=== PATIENT | female | born 1960 | race Caucasian/White ===

== ENCOUNTER 2021-12-31 10:24 | Inpatient (IN) | payer MEDICARE ==
[2021-12-31 11:30] VITALS: BMI 59.5
[2021-12-31] MEDS ORDERED: Albuterol 200 PUFF (6.7GM INHALER) INH PRN (12:43)
[2021-12-31] MEDS ORDERED: HYDROcodone/Acetaminophen 10/325 mg Tablet PO PRN (12:43)
[2021-12-31] MEDS ORDERED: Dextrose 50% Abboject 50 ML SYRINGE SLOW IVP PRN (12:55)
[2021-12-31] MEDS ORDERED: Insulin Regular 300 UNITS/3 ML VIAL SC PRN ×2 (12:55)
[2021-12-31] MEDS ORDERED: Dicyclomine 10 MG CAP PO SCH (13:00)
[2021-12-31] MEDS ORDERED: HYDROXYZINE 50 MG PO SCH (13:00)
[2021-12-31] MEDS ORDERED: Acetaminophen 325 MG TAB PO PRN (14:32)
[2021-12-31] MEDS: HYDROcodone/Acetaminophen 10/325 mg Tablet PO PRN (14:45)
[2021-12-31] MEDS: Pregabalin 50 MG CAP PO SCH ×2 (16:22→20:15)
[2021-12-31] MEDS: Baclofen 10 MG TAB PO SCH ×2 (16:22→20:18)
[2021-12-31] MEDS: Acetaminophen 325 MG TAB PO PRN (16:30)
[2021-12-31] MEDS: Clindamycin 150 MG CAP PO SCH ×2 (17:38→23:23)
[2021-12-31] MEDS: hydrOXYzine 25 MG TAB PO SCH ×2 (17:39→23:23)
[2021-12-31] MEDS: Dicyclomine 10 MG CAP PO SCH ×2 (17:40→20:18)
[2021-12-31 18:44] LABS: SARS-CoV-2 PCR by NAA Not Detected (NotDetected)
[2021-12-31] MEDS: Atorvastatin Calcium 40 MG TAB PO SCH (20:16)
[2021-12-31] MEDS: DULoxetine 30 MG CAP PO SCH (20:17)
[2021-12-31] MEDS: Amitriptyline HCl 25 MG TAB PO SCH (20:17)
[2021-12-31] MEDS: Famotidine 20 MG TAB PO SCH (20:18)
[2021-12-31] MEDS: Carvedilol 12.5 MG TAB PO SCH (20:18)
[2021-12-31] MEDS: Gabapentin 300 MG CAP PO SCH (20:18)
[2021-12-31] MEDS: Hydrocortisone 1% Cream 30 GM TUBE TOP SCH (20:19)
[2021-12-31] MEDS: Mometasone/Formoterol 200/5 60 PUFF INH SCH (20:20)
[2021-12-31] MEDS ORDERED: Non-Formulary Item 1 EACH (Duloxetine [Cymbalta] 60 MG Cap) PO SCH (21:00)
[2021-12-31] MEDS ORDERED: AMITRIPTYLINE HCL 100 MG PO SCH (21:00)
[2021-12-31] MEDS ORDERED: Atorvastatin Calcium 40 MG TAB PO SCH (21:00)
[2021-12-31] MEDS ORDERED: CARVEDILOL 25 MG PO SCH (21:00)
[2021-12-31] MEDS ORDERED: Non-Formulary Item 1 EACH (Fluticasone/Salmeterol [Advair Diskus 250/50] 1 EACH Blst.W.De IH SCH (21:00)
[2022-01-01] MEDS: HYDROcodone/Acetaminophen 10/325 mg Tablet PO PRN ×3 (05:08→22:08)
[2022-01-01] MEDS: Clindamycin 150 MG CAP PO SCH ×3 (05:08→18:33)
[2022-01-01] MEDS: hydrOXYzine 25 MG TAB PO SCH ×3 (05:10→18:33)
[2022-01-01 05:18] LABS: #Basophils 0.1 thou/uL (0.0-0.2); #Eosinphils 0.3 thou/uL (0.0-0.7); #Lymphocytes 3.5 thou/uL (1.20-3.40); #Monocytes 0.8 thou/uL (0.11-0.59); %Basophils 0.9 % (0.0-1.0); %Eosinophils 3.6 % (0.0-10.0); %Lymphocytes 36.2 % (21.0-51.0); %Monocytes 7.8 % (0.0-10.0); %Neutrophils 51.5 % (42.0-75.0); Hemoglobin 13.3 g/dL (12.0-16.0); Mean Corpuscular HGB CONC 31.6 g/dL (32.0-36.0); Mean Corpuscular Hemoglobin 28.1 pg (27.0-31.0); Mean Corpuscular Volume 88.9 fL (78.0-98.0); Mean Platelet Volume 7.1 fL (7.4-10.4); Platelet Count 195 thou/uL (130-400); RBC Distribution Width 13.6 % (11.5-14.5); Red Blood Cell (RBC) Count 4.73 mill/uL (4.20-5.40); White Blood Cell (WBC) Count 9.7 thou/uL (4.8-10.8)
[2022-01-01 05:28] LABS: Anion Gap 12 mmol/L (10-20); BUN (Urea Nitrogen) 35 mg/dL (9.8-20.1); Calc. Creatinine Clearance 133 mL/min (70-130); Calcium 9.2 mg/dL (7.8-10.44); Carbon Dioxide 36 mmol/L (22-29); Chloride 98 mmol/L (98-107); Glucose 108 mg/dL (70-105); Potassium 4.6 mmol/L (3.5-5.1); Sodium 141 mmol/L (136-145)
[2022-01-01] MEDS ORDERED: Fluticasone Propionate Nasal Spray 16 gm Bottle NASAL SCH (09:00)
[2022-01-01] MEDS ORDERED: metFORMIN 500 MG TAB PO SCH (09:00)
[2022-01-01] MEDS ORDERED: Potassium Chloride 20 MEQ TAB PO SCH (09:00)
[2022-01-01] MEDS ORDERED: Non-Formulary Item 1 EACH (Lisinopril/Hydrochlorothiazide [Lisinopril-Hctz 20-12.5 Mg Tab PO SCH (09:00)
[2022-01-01] MEDS: Hydrochlorothiazide 25 MG TAB PO SCH (09:04)
[2022-01-01] MEDS: Carvedilol 12.5 MG TAB PO SCH (09:04)
[2022-01-01] MEDS: Dicyclomine 10 MG CAP PO SCH (09:04)
[2022-01-01] MEDS: metFORMIN 500 MG TAB PO SCH (09:04)
[2022-01-01] MEDS: Mometasone/Formoterol 200/5 60 PUFF INH SCH ×2 (09:05→21:54)
[2022-01-01] MEDS: Polyethylene Glycol 3350 17 GM Packet PO SCH (09:06)
[2022-01-01] MEDS: Lisinopril 20 MG TAB PO SCH (09:14)
[2022-01-01] MEDS: Famotidine 20 MG TAB PO SCH ×2 (09:14→22:01)
[2022-01-01] MEDS: Clopidogrel Bisulfate 75 MG TAB PO SCH (09:14)
[2022-01-01] MEDS: Baclofen 10 MG TAB PO SCH ×3 (09:14→21:58)
[2022-01-01] MEDS: Enoxaparin Sodium 40 MG/0.4 ML SYRINGE SC SCH (09:14)
[2022-01-01] MEDS: Furosemide 40 MG TAB PO SCH (09:14)
[2022-01-01] MEDS: Potassium Chloride 20 MEQ TAB PO SCH (09:14)
[2022-01-01] MEDS: Montelukast Sodium 10 mg Tablet PO SCH (09:14)
[2022-01-01] MEDS: Fluticasone Propionate Nasal Spray 16 gm Bottle NASAL SCH (09:15)
[2022-01-01] MEDS: Hydrocortisone 1% Cream 30 GM TUBE TOP SCH ×2 (09:15→22:03)
[2022-01-01] MEDS: Pregabalin 50 MG CAP PO SCH ×3 (09:16→21:57)
[2022-01-01] MEDS ORDERED: Saccharomyces boulardii 250 MG CAP PO SCH (11:00)
[2022-01-01] MEDS: Benzonatate 100 MG CAP PO PRN (14:30)
[2022-01-01] MEDS ORDERED: Loratadine 10 MG TAB PO SCH (15:00)
[2022-01-01] MEDS: Ondansetron ODT 4 MG TAB PO PRN (18:09)
[2022-01-01] MEDS: Nystatin 500,000 UNITS/5 ML UDCUP SSW SCH ×2 (18:33→22:02)
[2022-01-01] MEDS: Gabapentin 300 MG CAP PO SCH (21:55)
[2022-01-01] MEDS: Atorvastatin Calcium 40 MG TAB PO SCH (21:58)
[2022-01-01] MEDS: DULoxetine 30 MG CAP PO SCH (21:58)
[2022-01-01] MEDS: Amitriptyline HCl 25 MG TAB PO SCH (21:59)
[2022-01-01] MEDS: Carbamide Peroxide 6.5% Otic Drops 15 ml Bottle EA EAR SCH (22:08)
[2022-01-02] MEDS: hydrOXYzine 25 MG TAB PO SCH ×4 (00:26→17:03)
[2022-01-02] MEDS: Clindamycin 150 MG CAP PO SCH ×5 (00:26→23:15)
[2022-01-02] MEDS: Hydrocortisone 1% Cream 30 GM TUBE TOP SCH ×2 (08:02→21:59)
[2022-01-02] MEDS: Mag-Al Plus 1200 MG/1200 MG/120 MG/30 ML UDCUP PO PRN (08:02)
[2022-01-02] MEDS: Polyethylene Glycol 3350 17 GM Packet PO SCH (08:03)
[2022-01-02] MEDS: Enoxaparin Sodium 40 MG/0.4 ML SYRINGE SC SCH (08:03)
[2022-01-02] MEDS: Baclofen 10 MG TAB PO SCH ×3 (08:04→21:54)
[2022-01-02] MEDS: Carvedilol 12.5 MG TAB PO SCH ×3 (08:04→22:02)
[2022-01-02] MEDS: Hydrochlorothiazide 25 MG TAB PO SCH (08:06)
[2022-01-02] MEDS: Benzonatate 100 MG CAP PO PRN (08:06)
[2022-01-02] MEDS: Lisinopril 20 MG TAB PO SCH ×2 (08:07→14:49)
[2022-01-02] MEDS: Fluticasone Propionate Nasal Spray 16 gm Bottle NASAL SCH (08:08)
[2022-01-02] MEDS: metFORMIN 500 MG TAB PO SCH (08:08)
[2022-01-02] MEDS: Furosemide 40 MG TAB PO SCH ×2 (08:08→14:49)
[2022-01-02] MEDS: Potassium Chloride 20 MEQ TAB PO SCH (08:08)
[2022-01-02] MEDS: Loratadine 10 MG TAB PO SCH (08:09)
[2022-01-02] MEDS: Clopidogrel Bisulfate 75 MG TAB PO SCH (08:09)
[2022-01-02] MEDS: Saccharomyces boulardii 250 MG CAP PO SCH (08:09)
[2022-01-02] MEDS: Famotidine 20 MG TAB PO SCH ×2 (08:09→21:52)
[2022-01-02] MEDS: Montelukast Sodium 10 mg Tablet PO SCH (08:09)
[2022-01-02] MEDS: Pregabalin 50 MG CAP PO SCH ×3 (08:09→21:49)
[2022-01-02] MEDS: Mometasone/Formoterol 200/5 60 PUFF INH SCH ×2 (08:10→21:48)
[2022-01-02] MEDS: Carbamide Peroxide 6.5% Otic Drops 15 ml Bottle EA EAR SCH ×2 (08:10→21:58)
[2022-01-02] MEDS: Nystatin 500,000 UNITS/5 ML UDCUP SSW SCH ×4 (08:11→21:48)
[2022-01-02] MEDS: HYDROcodone/Acetaminophen 10/325 mg Tablet PO PRN ×2 (14:51→23:13)
[2022-01-02] MEDS: Acetaminophen 325 MG TAB PO PRN (19:11)
[2022-01-02] MEDS ORDERED: Furosemide 40 MG TAB PO PRN (21:38)
[2022-01-02] MEDS: Amitriptyline HCl 25 MG TAB PO SCH (21:50)
[2022-01-02] MEDS: Atorvastatin Calcium 40 MG TAB PO SCH (21:51)
[2022-01-02] MEDS: DULoxetine 30 MG CAP PO SCH (21:52)
[2022-01-02] MEDS: Gabapentin 300 MG CAP PO SCH (21:53)
[2022-01-03] MEDS: Clindamycin 150 MG CAP PO SCH ×3 (06:50→17:21)
[2022-01-03] MEDS: Pregabalin 50 MG CAP PO SCH ×3 (08:42→21:14)
[2022-01-03] MEDS: Loratadine 10 MG TAB PO SCH (08:43)
[2022-01-03] MEDS: Carvedilol 12.5 MG TAB PO SCH ×2 (08:43→21:22)
[2022-01-03] MEDS: Hydrochlorothiazide 25 MG TAB PO SCH (08:43)
[2022-01-03] MEDS: Baclofen 10 MG TAB PO SCH ×3 (08:43→21:18)
[2022-01-03] MEDS: Potassium Chloride 20 MEQ TAB PO SCH (08:44)
[2022-01-03] MEDS: Clopidogrel Bisulfate 75 MG TAB PO SCH (08:44)
[2022-01-03] MEDS: Montelukast Sodium 10 mg Tablet PO SCH (08:44)
[2022-01-03] MEDS: metFORMIN 500 MG TAB PO SCH (08:44)
[2022-01-03] MEDS: Lisinopril 20 MG TAB PO SCH (08:44)
[2022-01-03] MEDS: Saccharomyces boulardii 250 MG CAP PO SCH (08:44)
[2022-01-03] MEDS: Famotidine 20 MG TAB PO SCH ×2 (08:44→21:18)
[2022-01-03] MEDS: HYDROcodone/Acetaminophen 10/325 mg Tablet PO PRN ×2 (08:46→17:23)
[2022-01-03] MEDS: Enoxaparin Sodium 40 MG/0.4 ML SYRINGE SC SCH (08:47)
[2022-01-03] MEDS: Nystatin 500,000 UNITS/5 ML UDCUP SSW SCH ×4 (08:47→21:18)
[2022-01-03] MEDS: Polyethylene Glycol 3350 17 GM Packet PO SCH (08:47)
[2022-01-03] MEDS: Mometasone/Formoterol 200/5 60 PUFF INH SCH ×2 (08:50→21:18)
[2022-01-03] MEDS: Carbamide Peroxide 6.5% Otic Drops 15 ml Bottle EA EAR SCH ×2 (08:50→22:45)
[2022-01-03] MEDS: Fluticasone Propionate Nasal Spray 16 gm Bottle NASAL SCH (08:50)
[2022-01-03] MEDS: Hydrocortisone 1% Cream 30 GM TUBE TOP SCH ×2 (08:59→21:23)
[2022-01-03] MEDS ORDERED: Cepastat Lozenges 1 LOZ PO PRN (12:52)
[2022-01-03] MEDS: Atorvastatin Calcium 40 MG TAB PO SCH (21:15)
[2022-01-03] MEDS: DULoxetine 30 MG CAP PO SCH (21:15)
[2022-01-03] MEDS: hydrOXYzine 25 MG TAB PO PRN (21:16)
[2022-01-03] MEDS: Gabapentin 300 MG CAP PO SCH (21:17)
[2022-01-03] MEDS: Acetaminophen 325 MG TAB PO PRN (22:56)
[2022-01-04] MEDS: Clindamycin 150 MG CAP PO SCH ×5 (00:20→23:43)
[2022-01-04] MEDS: Amitriptyline HCl 25 MG TAB PO SCH ×3 (00:30→20:37)
[2022-01-04] MEDS: Ondansetron ODT 4 MG TAB PO PRN (02:01)
[2022-01-04] MEDS: HYDROcodone/Acetaminophen 10/325 mg Tablet PO PRN ×3 (02:20→18:22)
[2022-01-04] MEDS: Mag-Al Plus 1200 MG/1200 MG/120 MG/30 ML UDCUP PO PRN (07:54)
[2022-01-04] MEDS: Enoxaparin Sodium 40 MG/0.4 ML SYRINGE SC SCH (08:09)
[2022-01-04] MEDS: Acetaminophen 325 MG TAB PO PRN ×2 (08:09→23:43)
[2022-01-04] MEDS: Baclofen 10 MG TAB PO SCH ×3 (08:10→20:38)
[2022-01-04] MEDS: Pregabalin 50 MG CAP PO SCH ×3 (08:10→20:38)
[2022-01-04] MEDS: Hydrochlorothiazide 25 MG TAB PO SCH (08:10)
[2022-01-04] MEDS: Polyethylene Glycol 3350 17 GM Packet PO SCH (08:10)
[2022-01-04] MEDS: Montelukast Sodium 10 mg Tablet PO SCH (08:17)
[2022-01-04] MEDS: Carvedilol 12.5 MG TAB PO SCH ×2 (08:17→20:38)
[2022-01-04] MEDS: Clopidogrel Bisulfate 75 MG TAB PO SCH (08:17)
[2022-01-04] MEDS: Saccharomyces boulardii 250 MG CAP PO SCH (08:17)
[2022-01-04] MEDS: Hydrocortisone 1% Cream 30 GM TUBE TOP SCH ×2 (08:18→20:44)
[2022-01-04] MEDS: Potassium Chloride 20 MEQ TAB PO SCH (08:18)
[2022-01-04] MEDS: Loratadine 10 MG TAB PO SCH (08:18)
[2022-01-04] MEDS: metFORMIN 500 MG TAB PO SCH (08:18)
[2022-01-04] MEDS: Carbamide Peroxide 6.5% Otic Drops 15 ml Bottle EA EAR SCH ×2 (08:20→20:43)
[2022-01-04] MEDS: Fluticasone Propionate Nasal Spray 16 gm Bottle NASAL SCH (08:20)
[2022-01-04] MEDS: Mometasone/Formoterol 200/5 60 PUFF INH SCH ×2 (08:21→20:43)
[2022-01-04] MEDS: Nystatin 500,000 UNITS/5 ML UDCUP SSW SCH ×4 (08:22→20:44)
[2022-01-04] MEDS: hydrOXYzine 25 MG TAB PO PRN (14:20)
[2022-01-04] MEDS: Atorvastatin Calcium 40 MG TAB PO SCH (20:38)
[2022-01-04] MEDS: DULoxetine 30 MG CAP PO SCH (20:38)
[2022-01-04] MEDS: Gabapentin 300 MG CAP PO SCH (20:39)
[2022-01-05] MEDS: HYDROcodone/Acetaminophen 10/325 mg Tablet PO PRN ×3 (03:35→19:19)
[2022-01-05] MEDS: Clindamycin 150 MG CAP PO SCH ×4 (05:21→23:52)
[2022-01-05] MEDS: Fluticasone Propionate Nasal Spray 16 gm Bottle NASAL SCH (10:18)
[2022-01-05] MEDS: Acetaminophen 325 MG TAB PO PRN (10:19)
[2022-01-05] MEDS: metFORMIN 500 MG TAB PO SCH (10:19)
[2022-01-05] MEDS: Loratadine 10 MG TAB PO SCH (10:19)
[2022-01-05] MEDS: Pregabalin 50 MG CAP PO SCH ×3 (10:19→20:21)
[2022-01-05] MEDS: Carvedilol 12.5 MG TAB PO SCH ×2 (10:20→20:17)
[2022-01-05] MEDS: Clopidogrel Bisulfate 75 MG TAB PO SCH (10:20)
[2022-01-05] MEDS: Nystatin 500,000 UNITS/5 ML UDCUP SSW SCH ×4 (10:20→20:16)
[2022-01-05] MEDS: Potassium Chloride 20 MEQ TAB PO SCH (10:20)
[2022-01-05] MEDS: Montelukast Sodium 10 mg Tablet PO SCH (10:20)
[2022-01-05] MEDS: Baclofen 10 MG TAB PO SCH ×3 (10:20→20:16)
[2022-01-05] MEDS: Saccharomyces boulardii 250 MG CAP PO SCH (10:20)
[2022-01-05] MEDS: Enoxaparin Sodium 40 MG/0.4 ML SYRINGE SC SCH (10:20)
[2022-01-05] MEDS: Polyethylene Glycol 3350 17 GM Packet PO SCH (10:21)
[2022-01-05] MEDS: Hydrocortisone 1% Cream 30 GM TUBE TOP SCH ×2 (10:21→20:20)
[2022-01-05] MEDS: Carbamide Peroxide 6.5% Otic Drops 15 ml Bottle EA EAR SCH ×2 (10:21→20:19)
[2022-01-05] MEDS: Mometasone/Formoterol 200/5 60 PUFF INH SCH ×2 (10:21→20:19)
[2022-01-05] MEDS: hydrOXYzine 25 MG TAB PO PRN ×2 (12:20→20:27)
[2022-01-05] MEDS: Amitriptyline HCl 25 MG TAB PO SCH (20:17)
[2022-01-05] MEDS: Gabapentin 300 MG CAP PO SCH (20:17)
[2022-01-05] MEDS: Atorvastatin Calcium 40 MG TAB PO SCH (20:17)
[2022-01-05] MEDS: DULoxetine 30 MG CAP PO SCH (20:18)
[2022-01-06] MEDS: Ondansetron ODT 4 MG TAB PO PRN (00:51)
[2022-01-06] MEDS: Clindamycin 150 MG CAP PO SCH ×4 (06:00→23:03)
[2022-01-06] MEDS: Fluticasone Propionate Nasal Spray 16 gm Bottle NASAL SCH (09:24)
[2022-01-06] MEDS: Mometasone/Formoterol 200/5 60 PUFF INH SCH ×2 (09:24→20:34)
[2022-01-06] MEDS: Nystatin 500,000 UNITS/5 ML UDCUP SSW SCH ×4 (09:25→20:34)
[2022-01-06] MEDS: Polyethylene Glycol 3350 17 GM Packet PO SCH (09:25)
[2022-01-06] MEDS: Pregabalin 50 MG CAP PO SCH ×3 (09:25→20:31)
[2022-01-06] MEDS: Loratadine 10 MG TAB PO SCH (09:26)
[2022-01-06] MEDS: Montelukast Sodium 10 mg Tablet PO SCH (09:26)
[2022-01-06] MEDS: Clopidogrel Bisulfate 75 MG TAB PO SCH (09:26)
[2022-01-06] MEDS: Carvedilol 12.5 MG TAB PO SCH ×2 (09:26→20:34)
[2022-01-06] MEDS: Baclofen 10 MG TAB PO SCH ×3 (09:26→20:33)
[2022-01-06] MEDS: Potassium Chloride 20 MEQ TAB PO SCH (09:26)
[2022-01-06] MEDS: metFORMIN 500 MG TAB PO SCH (09:26)
[2022-01-06] MEDS: Saccharomyces boulardii 250 MG CAP PO SCH (09:26)
[2022-01-06] MEDS: Carbamide Peroxide 6.5% Otic Drops 15 ml Bottle EA EAR SCH ×2 (09:26→20:35)
[2022-01-06] MEDS: Hydrocortisone 1% Cream 30 GM TUBE TOP SCH ×2 (09:27→20:35)
[2022-01-06] MEDS: Enoxaparin Sodium 40 MG/0.4 ML SYRINGE SC SCH (09:27)
[2022-01-06] MEDS: hydrOXYzine 25 MG TAB PO PRN (09:33)
[2022-01-06] MEDS: HYDROcodone/Acetaminophen 10/325 mg Tablet PO PRN ×2 (12:25→20:42)
[2022-01-06] MEDS: Amitriptyline HCl 25 MG TAB PO SCH (20:32)
[2022-01-06] MEDS: Gabapentin 300 MG CAP PO SCH (20:32)
[2022-01-06] MEDS: DULoxetine 30 MG CAP PO SCH (20:34)
[2022-01-06] MEDS: Atorvastatin Calcium 40 MG TAB PO SCH (20:34)
[2022-01-07] MEDS: HYDROcodone/Acetaminophen 10/325 mg Tablet PO PRN ×3 (05:31→22:15)
[2022-01-07] MEDS: Clindamycin 150 MG CAP PO SCH ×4 (05:31→23:48)
[2022-01-07] MEDS: Polyethylene Glycol 3350 17 GM Packet PO SCH (08:02)
[2022-01-07] MEDS: Enoxaparin Sodium 40 MG/0.4 ML SYRINGE SC SCH (08:02)
[2022-01-07] MEDS: hydrOXYzine 25 MG TAB PO PRN ×2 (08:04→14:48)
[2022-01-07] MEDS: Pregabalin 50 MG CAP PO SCH ×3 (08:04→22:17)
[2022-01-07] MEDS: Nystatin 500,000 UNITS/5 ML UDCUP SSW SCH ×4 (08:05→20:17)
[2022-01-07] MEDS: Loratadine 10 MG TAB PO SCH (08:05)
[2022-01-07] MEDS: Montelukast Sodium 10 mg Tablet PO SCH (08:05)
[2022-01-07] MEDS: Potassium Chloride 20 MEQ TAB PO SCH (08:05)
[2022-01-07] MEDS: Saccharomyces boulardii 250 MG CAP PO SCH (08:05)
[2022-01-07] MEDS: Clopidogrel Bisulfate 75 MG TAB PO SCH (08:05)
[2022-01-07] MEDS: metFORMIN 500 MG TAB PO SCH (08:05)
[2022-01-07] MEDS: Fluticasone Propionate Nasal Spray 16 gm Bottle NASAL SCH (08:06)
[2022-01-07] MEDS: Mometasone/Formoterol 200/5 60 PUFF INH SCH ×2 (08:06→22:13)
[2022-01-07] MEDS: Hydrocortisone 1% Cream 30 GM TUBE TOP SCH ×2 (08:06→22:16)
[2022-01-07] MEDS: Carbamide Peroxide 6.5% Otic Drops 15 ml Bottle EA EAR SCH ×2 (08:07→22:14)
[2022-01-07] MEDS: Carvedilol 12.5 MG TAB PO SCH ×2 (08:07→20:19)
[2022-01-07] MEDS: Baclofen 10 MG TAB PO SCH ×3 (08:07→20:19)
[2022-01-07] MEDS: Acetaminophen 325 MG TAB PO PRN (12:20)
[2022-01-07 16:49] LABS: SARS-CoV-2 PCR by NAA Not Detected (NotDetected)
[2022-01-07] MEDS: Gabapentin 300 MG CAP PO SCH (20:17)
[2022-01-07] MEDS: DULoxetine 30 MG CAP PO SCH (20:18)
[2022-01-07] MEDS: Atorvastatin Calcium 40 MG TAB PO SCH (20:19)
[2022-01-07] MEDS: Amitriptyline HCl 25 MG TAB PO SCH (20:19)
[2022-01-07] MEDS ORDERED: Pregabalin 50 MG CAP PO SCH ×2 (21:15→22:15)
[2022-01-08] MEDS: Clindamycin 150 MG CAP PO SCH (05:24)
[2022-01-08 07:27] VITALS: BP 124/54; TEMP 98.4
[2022-01-08] MEDS: Carbamide Peroxide 6.5% Otic Drops 15 ml Bottle EA EAR SCH (08:17)
[2022-01-08] MEDS: Baclofen 10 MG TAB PO SCH (08:17)
[2022-01-08] MEDS: Clopidogrel Bisulfate 75 MG TAB PO SCH (08:18)
[2022-01-08] MEDS: Enoxaparin Sodium 40 MG/0.4 ML SYRINGE SC SCH (08:18)
[2022-01-08] MEDS: Carvedilol 12.5 MG TAB PO SCH (08:18)
[2022-01-08] MEDS: Fluticasone Propionate Nasal Spray 16 gm Bottle NASAL SCH (08:18)
[2022-01-08] MEDS: Loratadine 10 MG TAB PO SCH (08:19)
[2022-01-08] MEDS: Hydrocortisone 1% Cream 30 GM TUBE TOP SCH (08:19)
[2022-01-08] MEDS: Mometasone/Formoterol 200/5 60 PUFF INH SCH (08:19)
[2022-01-08] MEDS: metFORMIN 500 MG TAB PO SCH (08:19)
[2022-01-08] MEDS: Montelukast Sodium 10 mg Tablet PO SCH (08:20)
[2022-01-08] MEDS: Polyethylene Glycol 3350 17 GM Packet PO SCH (08:21)
[2022-01-08] MEDS: Pregabalin 50 MG CAP PO SCH (08:21)
[2022-01-08] MEDS: Potassium Chloride 20 MEQ TAB PO SCH (08:21)
[2022-01-08] MEDS: Nystatin 500,000 UNITS/5 ML UDCUP SSW SCH (08:21)
[2022-01-08] MEDS: HYDROcodone/Acetaminophen 10/325 mg Tablet PO PRN (08:22)
[2022-01-08] MEDS: Saccharomyces boulardii 250 MG CAP PO SCH (08:22)
[2022-01-08] MEDS: Ondansetron ODT 4 MG TAB PO PRN (09:54)
== END 2022-01-08 11:45 | disposition home or self-care (01) | DRG 948 ==
LOC: MADMS 11:23
PROVIDERS: ADMIT Family Medicine; ATTEND Family Medicine
DX: R53.81 Other malaise (principal); I50.32 Chronic diastolic (congestive) heart failure; J96.11 Chronic respiratory failure with hypoxia; L03.119 Cellulitis of unspecified part of limb; E66.2 Morbid (severe) obesity with alveolar hypoventilation; Z68.43 Body mass index [BMI] 50.0-59.9, adult; G47.33 Obstructive sleep apnea (adult) (pediatric); K21.9 Gastro-esophageal reflux disease without esophagitis; I11.0 Hypertensive heart disease with heart failure; E78.5 Hyperlipidemia, unspecified; E11.22 Type 2 diabetes mellitus with diabetic chronic kidney disease; Z96.651 Presence of right artificial knee joint; E11.42 Type 2 diabetes mellitus with diabetic polyneuropathy; R26.81 Unsteadiness on feet; G89.4 Chronic pain syndrome; Z20.822 Contact with and (suspected) exposure to COVID-19; Z88.1 Allergy status to other antibiotic agents; Z88.2 Allergy status to sulfonamides; Z91.048 Other nonmedicinal substance allergy status; Z99.81 Dependence on supplemental oxygen; Z79.51 Long term (current) use of inhaled steroids; Z79.899 Other long term (current) drug therapy; Z79.2 Long term (current) use of antibiotics; Z90.49 Acquired absence of other specified parts of digestive tract; Z98.890 Other specified postprocedural states
CPT/HCPCS: 36416; 80048; 85025; 87081; 87430; J1650; Q0162; U0003; U0005

== ENCOUNTER 2022-03-19 12:45 | Inpatient (IN) | payer MEDICARE ==
[2022-03-19 15:20] VITALS: BMI 58.9
[2022-03-19] MEDS ORDERED: Albuterol 200 PUFF (6.7GM INHALER) INH PRN (16:36)
[2022-03-19] MEDS ORDERED: Cepastat Lozenges 1 LOZ PO PRN (16:37)
[2022-03-19] MEDS: hydrOXYzine 25 MG TAB PO SCH ×2 (17:25→23:09)
[2022-03-19] MEDS: HYDROcodone/Acetaminophen 10/325 mg Tablet PO PRN ×2 (17:25→23:09)
[2022-03-19] MEDS: Cephalexin 250 MG CAP PO SCH ×2 (18:00→23:09)
[2022-03-19] MEDS ORDERED: Lantiseptic Ointment 130 GM JAR TOP PRN (20:23)
[2022-03-19] MEDS ORDERED: Dextrose 50% Abboject 50 ML SYRINGE IVP PRN (20:30)
[2022-03-19] MEDS ORDERED: Dextrose 5% in Water 1,000 ML IV PRN (20:30)
[2022-03-19] MEDS ORDERED: HumaLOG 300 UNITS/3 ML VIAL SC PRN (20:30)
[2022-03-19] MEDS: Amitriptyline HCl 25 MG TAB PO SCH (21:53)
[2022-03-19] MEDS: DULoxetine 30 MG CAP PO SCH (21:53)
[2022-03-19] MEDS: Atorvastatin Calcium 40 MG TAB PO SCH (21:54)
[2022-03-19] MEDS: Carvedilol 12.5 MG TAB PO SCH (21:55)
[2022-03-19] MEDS: Gabapentin 300 MG CAP PO SCH (21:56)
[2022-03-19] MEDS: Senokot S 8.6-50 MG TAB PO SCH (21:57)
[2022-03-19] MEDS: Pregabalin 50 MG CAP PO SCH (21:57)
[2022-03-19] MEDS: Lantiseptic Ointment 130 GM JAR TOP SCH (21:58)
[2022-03-19] MEDS: Mometasone/Formoterol 200/5 60 PUFF INH SCH (21:58)
[2022-03-19] MEDS: Cyclobenzaprine 10 MG TAB PO PRN (22:05)
[2022-03-19] MEDS: guaiFENesin ER 600 MG TAB PO PRN (23:18)
[2022-03-20] MEDS: HYDROcodone/Acetaminophen 10/325 mg Tablet PO PRN ×2 (05:16→11:33)
[2022-03-20] MEDS: Cephalexin 250 MG CAP PO SCH ×4 (05:16→23:44)
[2022-03-20] MEDS: hydrOXYzine 25 MG TAB PO SCH ×4 (05:16→23:44)
[2022-03-20] MEDS: Lidocaine 5% Patch TD SCH (05:17)
[2022-03-20] MEDS: Pregabalin 50 MG CAP PO SCH ×3 (08:31→21:30)
[2022-03-20] MEDS: Polyethylene Glycol 3350 17 GM Packet PO SCH (08:31)
[2022-03-20] MEDS: Senokot S 8.6-50 MG TAB PO SCH ×2 (08:31→21:31)
[2022-03-20] MEDS: Montelukast Sodium 10 mg Tablet PO SCH (08:32)
[2022-03-20] MEDS: Carvedilol 12.5 MG TAB PO SCH ×2 (08:32→21:32)
[2022-03-20] MEDS: Amlodipine 5 MG TAB PO SCH (08:32)
[2022-03-20] MEDS: Fluticasone Propionate Nasal Spray 16 gm Bottle NASAL SCH (08:33)
[2022-03-20] MEDS: Clopidogrel Bisulfate 75 MG TAB PO SCH (08:33)
[2022-03-20] MEDS: Famotidine 20 MG TAB PO SCH (08:33)
[2022-03-20] MEDS: Mometasone/Formoterol 200/5 60 PUFF INH SCH ×2 (08:33→21:33)
[2022-03-20] MEDS: Lantiseptic Ointment 130 GM JAR TOP SCH ×2 (08:34→21:33)
[2022-03-20 09:20] LABS: Anion Gap 17 mmol/L (10-20); BUN (Urea Nitrogen) 19 mg/dL (9.8-20.1); Calc. Creatinine Clearance 200 mL/min (70-130); Calcium 9.4 mg/dL (7.8-10.44); Carbon Dioxide 31 mmol/L (22-29); Chloride 96 mmol/L (98-107); Glucose 125 mg/dL (70-105); Potassium 4.4 mmol/L (3.5-5.1); Sodium 140 mmol/L (136-145)
[2022-03-20 09:46] LABS: Hemoglobin 10.3 g/dL (12.0-16.0); Mean Corpuscular HGB CONC 33.5 g/dL (32.0-36.0); Mean Corpuscular Hemoglobin 29.2 pg (27.0-31.0); Mean Corpuscular Volume 87.2 fL (78.0-98.0); Mean Platelet Volume 8.5 fL (7.4-10.4); Platelet Count 215 thou/uL (130-400); Red Blood Cell (RBC) Count 3.52 mill/uL (4.20-5.40); White Blood Cell (WBC) Count 9.4 thou/uL (4.8-10.8)
[2022-03-20] MEDS ORDERED: Fleet Enema 133 ML BOT PR SCH (13:00)
[2022-03-20] MEDS ORDERED: Bisacodyl 10 MG SUPP PR PRN (13:08)
[2022-03-20] MEDS ORDERED: HYDROcodone/Acetaminophen 5/325 mg Tablet PO SCH (13:15)
[2022-03-20] MEDS ORDERED: HYDROcodone/Acetaminophen 5/325 mg Tablet PO PRN (14:51)
[2022-03-20] MEDS: Benzonatate 100 MG CAP PO PRN ×2 (16:50→23:44)
[2022-03-20] MEDS: Transdermal Patch Removal TOP SCH (16:51)
[2022-03-20] MEDS: HYDROcodone/Acetaminophen 5/325 mg Tablet PO PRN ×2 (17:58→23:45)
[2022-03-20] MEDS: Amitriptyline HCl 25 MG TAB PO SCH (21:29)
[2022-03-20] MEDS: Gabapentin 300 MG CAP PO SCH (21:30)
[2022-03-20] MEDS: DULoxetine 30 MG CAP PO SCH (21:32)
[2022-03-20] MEDS: Atorvastatin Calcium 40 MG TAB PO SCH (21:37)
[2022-03-21] MEDS: hydrOXYzine 25 MG TAB PO SCH ×3 (05:37→17:55)
[2022-03-21] MEDS: Lidocaine 5% Patch TD SCH (05:37)
[2022-03-21] MEDS: HYDROcodone/Acetaminophen 5/325 mg Tablet PO PRN ×3 (05:37→20:47)
[2022-03-21] MEDS: Cephalexin 250 MG CAP PO SCH ×3 (05:37→17:55)
[2022-03-21] MEDS: Mometasone/Formoterol 200/5 60 PUFF INH SCH ×2 (08:47→20:55)
[2022-03-21] MEDS: Amlodipine 5 MG TAB PO SCH (08:51)
[2022-03-21] MEDS: Carvedilol 12.5 MG TAB PO SCH ×2 (08:52→20:45)
[2022-03-21] MEDS: Clopidogrel Bisulfate 75 MG TAB PO SCH (08:52)
[2022-03-21] MEDS: Famotidine 20 MG TAB PO SCH (08:52)
[2022-03-21] MEDS: Fluticasone Propionate Nasal Spray 16 gm Bottle NASAL SCH (08:52)
[2022-03-21] MEDS: Montelukast Sodium 10 mg Tablet PO SCH (08:54)
[2022-03-21] MEDS: Pregabalin 50 MG CAP PO SCH ×3 (08:54→20:46)
[2022-03-21] MEDS: Polyethylene Glycol 3350 17 GM Packet PO SCH (08:54)
[2022-03-21] MEDS: Lantiseptic Ointment 130 GM JAR TOP SCH ×2 (08:54→20:56)
[2022-03-21] MEDS: Senokot S 8.6-50 MG TAB PO SCH ×2 (08:55→20:47)
[2022-03-21] MEDS: Benzonatate 100 MG CAP PO PRN ×2 (11:32→20:47)
[2022-03-21] MEDS: Transdermal Patch Removal TOP SCH (15:14)
[2022-03-21] MEDS ORDERED: hydrOXYzine 25 MG TAB ONE ×2 (17:46→23:58)
[2022-03-21] MEDS: Amitriptyline HCl 25 MG TAB PO SCH (20:44)
[2022-03-21] MEDS: Atorvastatin Calcium 40 MG TAB PO SCH (20:45)
[2022-03-21] MEDS: DULoxetine 30 MG CAP PO SCH (20:45)
[2022-03-21] MEDS: Gabapentin 300 MG CAP PO SCH (20:45)
[2022-03-21] MEDS: guaiFENesin ER 600 MG TAB PO PRN (20:47)
[2022-03-21] MEDS: Cyclobenzaprine 10 MG TAB PO PRN (20:55)
[2022-03-22] MEDS: Cephalexin 250 MG CAP PO SCH ×3 (00:06→16:14)
[2022-03-22] MEDS: hydrOXYzine 25 MG TAB PO SCH ×4 (00:08→17:20)
[2022-03-22] MEDS: Lidocaine 5% Patch TD SCH (05:43)
[2022-03-22] MEDS: Pregabalin 50 MG CAP PO SCH ×3 (08:52→20:46)
[2022-03-22] MEDS: Famotidine 20 MG TAB PO SCH (08:53)
[2022-03-22] MEDS: Montelukast Sodium 10 mg Tablet PO SCH (08:53)
[2022-03-22] MEDS: Senokot S 8.6-50 MG TAB PO SCH ×2 (08:53→20:48)
[2022-03-22] MEDS: Clopidogrel Bisulfate 75 MG TAB PO SCH (08:53)
[2022-03-22] MEDS: Carvedilol 12.5 MG TAB PO SCH ×2 (08:54→20:47)
[2022-03-22] MEDS: Amlodipine 5 MG TAB PO SCH (08:54)
[2022-03-22] MEDS: HYDROcodone/Acetaminophen 5/325 mg Tablet PO PRN ×3 (08:54→20:45)
[2022-03-22] MEDS: Fluticasone Propionate Nasal Spray 16 gm Bottle NASAL SCH (08:55)
[2022-03-22] MEDS: Polyethylene Glycol 3350 17 GM Packet PO SCH (08:56)
[2022-03-22] MEDS: Lantiseptic Ointment 130 GM JAR TOP SCH ×2 (08:56→20:48)
[2022-03-22] MEDS: Mometasone/Formoterol 200/5 60 PUFF INH SCH ×2 (08:56→20:49)
[2022-03-22] MEDS ORDERED: Cephalexin 500 MG CAP ONE (11:58)
[2022-03-22] MEDS ORDERED: hydrOXYzine 25 MG TAB ONE (11:59)
[2022-03-22] MEDS: Cephalexin 500 MG CAP PO SCH ×2 (12:22→17:20)
[2022-03-22] MEDS: Transdermal Patch Removal TOP SCH (16:17)
[2022-03-22] MEDS: Gabapentin 300 MG CAP PO SCH (20:47)
[2022-03-22] MEDS: Amitriptyline HCl 25 MG TAB PO SCH (20:47)
[2022-03-22] MEDS: Atorvastatin Calcium 40 MG TAB PO SCH (20:47)
[2022-03-22] MEDS: DULoxetine 30 MG CAP PO SCH (20:48)
[2022-03-23] MEDS: HYDROcodone/Acetaminophen 5/325 mg Tablet PO PRN ×4 (01:23→21:38)
[2022-03-23] MEDS: Cephalexin 500 MG CAP PO SCH ×4 (01:23→17:29)
[2022-03-23] MEDS: hydrOXYzine 25 MG TAB PO SCH ×4 (01:23→17:28)
[2022-03-23] MEDS: Lidocaine 5% Patch TD SCH (04:57)
[2022-03-23] MEDS ORDERED: HYDROcodone/Acetaminophen 5/325 mg Tablet PO SCH (05:45)
[2022-03-23] MEDS: Carvedilol 12.5 MG TAB PO SCH ×2 (09:28→21:37)
[2022-03-23] MEDS: Famotidine 20 MG TAB PO SCH (09:28)
[2022-03-23] MEDS: Pregabalin 50 MG CAP PO SCH ×3 (09:28→21:35)
[2022-03-23] MEDS: Senokot S 8.6-50 MG TAB PO SCH ×2 (09:28→21:34)
[2022-03-23] MEDS: Montelukast Sodium 10 mg Tablet PO SCH (09:28)
[2022-03-23] MEDS: Fluticasone Propionate Nasal Spray 16 gm Bottle NASAL SCH (09:29)
[2022-03-23] MEDS: Clopidogrel Bisulfate 75 MG TAB PO SCH (09:29)
[2022-03-23] MEDS: Amlodipine 5 MG TAB PO SCH (09:29)
[2022-03-23] MEDS: Lantiseptic Ointment 130 GM JAR TOP SCH ×2 (09:30→21:33)
[2022-03-23] MEDS: Mometasone/Formoterol 200/5 60 PUFF INH SCH ×2 (09:30→21:41)
[2022-03-23] MEDS: Polyethylene Glycol 3350 17 GM Packet PO SCH (10:46)
[2022-03-23] MEDS: Cyclobenzaprine 10 MG TAB PO PRN (12:44)
[2022-03-23 14:05] LABS: SARS-CoV-2 PCR by NAA Not Detected (NotDetected)
[2022-03-23] MEDS: Transdermal Patch Removal TOP SCH (17:17)
[2022-03-23] MEDS ORDERED: Emollient 15 oz bottle 450 ML, Triamcinolone Acetonide 200 MG TOP PRN ×2 (18:41→19:15)
[2022-03-23] MEDS ORDERED: Promethazine 25 MG TAB PO PRN (18:41)
[2022-03-23] MEDS ORDERED: hydrOXYzine 25 MG TAB PO PRN (20:49)
[2022-03-23] MEDS: DULoxetine 30 MG CAP PO SCH (21:34)
[2022-03-23] MEDS: Atorvastatin Calcium 40 MG TAB PO SCH (21:34)
[2022-03-23] MEDS: Amitriptyline HCl 25 MG TAB PO SCH (21:36)
[2022-03-23] MEDS: Gabapentin 300 MG CAP PO SCH (21:41)
[2022-03-23] MEDS: guaiFENesin ER 600 MG TAB PO PRN (22:22)
[2022-03-24] MEDS: HYDROcodone/Acetaminophen 5/325 mg Tablet PO PRN ×2 (05:50→13:11)
[2022-03-24 07:55] VITALS: BP 153/82; TEMP 97.8
[2022-03-24] MEDS: Mometasone/Formoterol 200/5 60 PUFF INH SCH (08:48)
[2022-03-24] MEDS: Amlodipine 5 MG TAB PO SCH (08:52)
[2022-03-24] MEDS: Carvedilol 12.5 MG TAB PO SCH (08:54)
[2022-03-24] MEDS: Clopidogrel Bisulfate 75 MG TAB PO SCH (08:54)
[2022-03-24] MEDS: Famotidine 20 MG TAB PO SCH (08:55)
[2022-03-24] MEDS: Fluticasone Propionate Nasal Spray 16 gm Bottle NASAL SCH (08:55)
[2022-03-24] MEDS: Montelukast Sodium 10 mg Tablet PO SCH (08:56)
[2022-03-24] MEDS: Lidocaine 5% Patch TD SCH ×2 (08:56→09:10)
[2022-03-24] MEDS: Lantiseptic Ointment 130 GM JAR TOP SCH (08:56)
[2022-03-24] MEDS: Pregabalin 50 MG CAP PO SCH ×2 (08:57→15:10)
[2022-03-24] MEDS: Polyethylene Glycol 3350 17 GM Packet PO SCH (08:57)
[2022-03-24] MEDS: Senokot S 8.6-50 MG TAB PO SCH (08:57)
[2022-03-24] MEDS ORDERED: Penicillin V Potassium 250 MG/5 ML Oral Solution PO SCH (09:00)
[2022-03-24] MEDS ORDERED: Penicillin V Potassium 250 MG TAB PO SCH (09:00)
[2022-03-24] MEDS ORDERED: Saccharomyces boulardii 250 MG CAP PO SCH (09:00)
[2022-03-24] MEDS ORDERED: Iopamidol 370 76% 125 ML VIAL FS ONE (10:44)
[2022-03-24 15:27] LABS: Anion Gap 15 mmol/L (10-20); BUN (Urea Nitrogen) 21 mg/dL (9.8-20.1); Calc. Creatinine Clearance 205 mL/min (70-130); Calcium 9.2 mg/dL (7.8-10.44); Carbon Dioxide 31 mmol/L (22-29); Chloride 99 mmol/L (98-107); Glucose 107 mg/dL (70-105); Potassium 4.3 mmol/L (3.5-5.1); Sodium 141 mmol/L (136-145)
[2022-03-24] MEDS ORDERED: Lidocaine 5% Patch TD SCH (21:00)
[2022-03-24] MEDS ORDERED: Transdermal Patch Removal TOP SCH (21:00)
[2022-03-25] MEDS ORDERED: Transdermal Patch Removal TOP SCH (09:00)
== END 2022-03-24 18:00 | disposition short-term general hospital (02) | DRG 947 ==
LOC: MADMS 15:01
PROVIDERS: ADMIT Family Medicine; ATTEND Family Medicine
DX: R53.81 Other malaise (principal); J80 Acute respiratory distress syndrome; J18.9 Pneumonia, unspecified organism; I26.99 Other pulmonary embolism without acute cor pulmonale; L03.116 Cellulitis of left lower limb; E66.2 Morbid (severe) obesity with alveolar hypoventilation; Z68.43 Body mass index [BMI] 50.0-59.9, adult; I50.32 Chronic diastolic (congestive) heart failure; I87.8 Other specified disorders of veins; G89.4 Chronic pain syndrome; M54.9 Dorsalgia, unspecified; E11.42 Type 2 diabetes mellitus with diabetic polyneuropathy; J84.10 Pulmonary fibrosis, unspecified; D64.9 Anemia, unspecified; K21.9 Gastro-esophageal reflux disease without esophagitis; E78.5 Hyperlipidemia, unspecified; F41.9 Anxiety disorder, unspecified; I11.0 Hypertensive heart disease with heart failure; Y95 Nosocomial condition; F32.A Depression, unspecified; K59.00 Constipation, unspecified; Z96.651 Presence of right artificial knee joint; Z20.822 Contact with and (suspected) exposure to COVID-19; Z88.7 Allergy status to serum and vaccine; Z99.81 Dependence on supplemental oxygen; Z88.8 Allergy status to other drugs, medicaments and biological substances; Z91.048 Other nonmedicinal substance allergy status; Z91.09 Other allergy status, other than to drugs and biological substances; Z88.2 Allergy status to sulfonamides; Z79.899 Other long term (current) drug therapy; Z79.51 Long term (current) use of inhaled steroids; Z98.1 Arthrodesis status; Z98.890 Other specified postprocedural states; Z79.891 Long term (current) use of opiate analgesic; Z88.1 Allergy status to other antibiotic agents; Z79.02 Long term (current) use of antithrombotics/antiplatelets
CPT/HCPCS: 36416; 71046; 71275; 80048; 83880; 84484; 85027; 94664; 36415-59; J3301; J7620; Q0169; Q9967; U0003; U0005